=== PATIENT | female | born 1970 | race African-American/Black ===

== ENCOUNTER 2019-01-14 03:22 | Emergency (ER) | payer OTHER ==
--- NOTE | 2019-01-14 07:00 | ER Document Report ---
ED General - General Chief Complaint: Epigastric Pain Stated Complaint: PAIN THROAT,CHEST,RIGHT SIDE Time Seen by Provider: 01/14/19 06:59 Primary Care Provider: ARLEEN HARVEY MD [ACTIVE STAFF] - Follow up tomorrow (call for appointment ) Notes: Patient is a 48-year-old female that presents to the emergency department for chief complaint of painful swallowing. Patient reports she is been having painful swallowing over the past week or so, she says it comes and goes and is mainly only hurts when she swallows food. She has pain on the whole right side of her jaw, goes down the neck and into the chest as well. She has seen multiple physicians for this, was started on Nexium and Zantac, which has improved her symptoms to a degree, but there is still present so she wanted to come to the emergency department. She was told it might be from doxycycline, that she took several doses and then lie down shortly after and was told it might be esophagitis. She does have an appointment scheduled with a gastroent erologist next week, but was concerned because her symptoms still persisted. She denies any any fevers, chills, night sweats, worsening pain with exertion, denies shortness of breath, difficulty breathing, nausea, vomiting, diarrhea or diaphoresis. Past Medical History: Diabetes mellitus Past Surgical History: Denies surgical history Social History: Denies tobacco use, admits occasional alcohol use, denies illicit drug use. Family History: Reviewed and noncontributory for presenting illness Allergies: Reviewed, see documented allergy list. REVIEW OF SYSTEMS: Other than noted above, the 12 point review of systems was reviewed with the patient and were negative, all pertinent findings are included in the HPI. PHYSICAL EXAMINATION: Vital signs reviewed, nursing noted reviewed. GENERAL: Well-appearing, well-nourished and in no acute distress. HEAD: Atraumatic, normocephalic. EYES: Eyes appear normal, extraocular movements intact, sclera anicteric, conjunctiva are normal. ENT: nares patent, oropharynx clear without exudates. Moist mucous membranes. NECK: Normal range of motion, supple without lymphadenopathy LUNGS: Breath sounds clear to auscultation bilaterally and equal. No wheezes rales or rhonchi. HEART: Regular rate and rhythm without murmurs ABDOMEN: Soft, nontender, normoactive bowel sounds. No rebound, guarding, or rigidity. No masses appreciated. EXTREMITIES: Nontender, good range of motion, no pitting or edema. NEUROLOGICAL: No focal neurological deficits. Moves all extremities spontaneously Motor and sensory grossly intact on exam. PSYCH: Normal mood, normal affect. SKIN: Warm, Dry, normal turgor, no rashes or lesions noted on exposed skin TRAVEL OUTSIDE OF THE [place] IN LAST 30 DAYS: No Past Medical History - Social History Smoking Status: Never Smoker Chew tobacco use (# tins/day): No Frequency of alcohol use: Occasional Drug Abuse: None Family History: Reviewed & Not Pertinent Patient has suicidal ideation: No Patient has homicidal ideation: No Endocrine Medical History: Reports: Hx Diabetes Mellitus Type 2 Renal/ Medical History: Denies: Hx Peritoneal Dialysis GI Medical History: Reports: Hx Gastroesophageal Reflux Disease Physical Exam - Vital signs Vitals: Temp Pulse Resp BP Pulse Ox 98.4 F 78 18 124/78 100 01/14/19 03:40 01/14/19 03:40 01/14/19 03:40 01/14/19 03:40 01/14/19 03:40 Course - Re-evaluation Re-evalutation: Patient seen and examined vital signs reviewed. Laboratory data and/or imaging were ordered as appropriate for the patient's presenting symptoms and complaint, with consideration of any critical or life threatening conditions that may be associated with their obtained history and exam as noted above. Patient was treated with GI cocktail which she had some relief Results were reviewed when available and demonstrated unremarkable work-up, negative troponin, negative chest x-ray, CBC and CMP were unremarkable as well. The patient was re-evaluated and was stable, did get some relief from GI cocktail, I do believe the patient is having esophageal symptoms, and some pharyngeal symptoms, will prescribe her Tessalon Perles to help as an oral anesthetic that may help with her painful swallowing, I will refer to ENT, and advised to keep her appointment with gastroenterology on Sunday. Evaluation was most consistent with odynophagia Results were discussed with the patient at this point, after careful consideration I feel that that patient can be discharged from the emergency department, the patient was educated treatments and reasons to return to the emergency department based on their presumed diagnosis as noted above, they were advised to followup with a primary care physician in 2-3 days. Patient was agr eeable to plan of care. *Note is created using voice recognition software and may contain spelling, syntax or grammatical errors. Laboratory 01/14/19 01/14/19 01/14/19 07:40 07:40 07:40 WBC RBC Hgb Hct MCV MCH MCHC RDW Plt Count Seg Neutrophils % Lymphocytes % Monocytes % Eosinophils % Basophils % Absolute Neutrophils Absolute Lymphocytes Absolute Monocytes Absolute Eosinophils Absolute Basophils Sodium Cancelled Potassium Cancelled Chloride Cancelled Carbon Dioxide Cancelled Anion Gap Cancelled BUN Cancelled Creatinine Cancelled Est GFR ( Amer) Cancelled Est GFR (Non-Af Amer) Cancelled Glucose Cancelled Calcium Cancelled Total Bilirubin Cancelled Direct Bilirubin Cancelled Neonat Total Bilirubin Cancelled Neonat Direct Bilirubin Cancelled Neonat Indirect Bili Cancelled AST Cancelled ALT Cancelled Alkaline Phosphatase Cancelled Troponin I Cancelled Total Protein Cancelled Albumin Cancelled Lipase Cancelled 01/14/19 01/14/19 01/14/19 08:38 08:38 08:38 WBC 4.6 RBC 4.37 Hgb 12.5 Hct 37.4 MCV 86 MCH 28.6 MCHC 33.3 RDW 14.4 H Plt Count 231 Seg Neutrophils % 47.3 Lymphocytes % 43.0 Monocytes % 6.4 Eosinophils % 2.5 Basophils % 0.8 Absolute Neutrophils 2.2 Absolute Lymphocytes 2.0 Absolute Monocytes 0.3 Absolute Eosinophils 0.1 Absolute Basophils 0.0 Sodium 139.5 Potassium 4.6 Chloride 101 Carbon Dioxide 31 H Anion Gap 8 BUN 14 Creatinine 1.00 Est GFR ( Amer) > 60 Est GFR (Non-Af Amer) 59 L Glucose 104 Calcium 9.6 Total Bilirubin 0.3 Direct Bilirubin 0.2 Neonat Total Bilirubin Not Reportable Neonat Direct Bilirubin Not Reportable Neonat Indirect Bili Not Reportable AST 19 ALT 20 Alkaline Phosphatase 67 Troponin I < 0.012 Total Protein 7.5 Albumin 4.5 Lipase Chest X-Ray 01/14/19 07:00 IMPRESSION: No acute cardiopulmonary findings. - Vital Signs Vital signs: Temp Pulse Resp BP Pulse Ox 98.1 F 78 16 106/65 98 01/14/19 11:08 01/14/19 11:08 01/14/19 11:08 01/14/19 11:08 01/14/19 09:46 - Laboratory Result Diagrams: 01/14/19 08:38 01/14/19 08:38 Laboratory results interpreted by me: 06/18/19 06/18/19 08:38 08:38 RDW 14.4 H Carbon Dioxide 31 H Est GFR (Non-Af Amer) 59 L Discharge - Discharge Clinical Impression: Odynophagia Condition: Stable Disposition: HOME, SELF-CARE Instructions: Dysphagia (OM) Additional Instructions: Please keep your point with the gyroscopic instrument tester, and Tronic follow-up with yo ur nose and throat physician as well due to the painful swallowing, to have that evaluated. In the meantime continue taking the medications as previously prescribed, and try taking the Tessalon Perles to see if it will help relieve some of the pain as well. Prescriptions: Benzonatate [Tessalon Perle 100 mg Capsule] 100 mg PO Q8HP PRN #30 cap PRN Reason: sore throat Referrals: ARLEEN HARVEY MD [ACTIVE STAFF] - Follow up tomorrow (call for appointment )
--- NOTE | 2019-01-14 07:30 | RADIOLOGY REPORT (SQ) ---
EXAM DESCRIPTION: XR CHEST 1 VIEW COMPLETED DATE/TME: 01/14/2019 07:00 CLINICAL HISTORY: 47 years Female, chest pain COMPARISON: None. NUMBER OF VIEWS/TECHNIQUE: 1/AP FINDINGS: Adequate lung volume, clear parenchyma, normal cardiac silhouette, and intact bony thorax. IMPRESSION: No acute cardiopulmonary findings.
[2019-01-14] MEDS ORDERED: MAG HYDROX/AL HYDROX/SIMETH SUSP 30 ML UDCUP PO ONE (07:31)
[2019-01-14] MEDS ORDERED: LIDOCAINE 2% VISCOUS SOLN 20 ML UDCUP PO ONE (07:31)
[2019-01-14] MEDS ORDERED: METOCLOPRAMIDE HCL ORAL SOLN 10 MG/10 ML UDCUP PO ONE (07:31)
[2019-01-14] MEDS ORDERED: SUCRALFATE 1 GM TABLET PO ONE (07:31)
[2019-01-14 09:17] LABS: ABSOLUTE EOSINOPHILS # (AUTO) 0.1 10^3/uL (0.0-0.6); ABSOLUTE MONOCYTES (AUTO) 0.3 10^3/uL (0.1-1.4); ABSOLUTE NEUT (AUTO) 2.2 10^3/uL (1.7-8.2); BASOPHILS % (AUTO) 0.8 % (0-2); EOSINOPHILS % (AUTO) 2.5 % (0-6); HEMATOCRIT 37.4 % (36.0-47.0); HEMOGLOBIN 12.5 g/dL (12.0-15.5); MEAN CORPUSCULAR HEMOGLOBIN 28.6 pg (27.0-33.4); MEAN CORPUSCULAR HGB CONC 33.3 g/dL (32.0-36.0); MEAN CORPUSCULAR VOLUME 86 fl (80-97); MONOCYTES % (AUTO) 6.4 % (3-13); PLATELET COUNT 231 10^3/uL (150-450); RED BLOOD COUNT 4.37 10^6/uL (3.72-5.28); RED CELL DISTRIBUTION WIDTH 14.4 % (11.5-14.0); SEGMENTED NEUTROPHILS % (AUTO) 47.3 % (42-78); TOTAL CELLS COUNTED % (AUTO) 100 %; WHITE BLOOD COUNT 4.6 10^3/uL (4.0-10.5)
[2019-01-14 09:49] LABS: ALANINE AMINOTRANSFERASE 20 U/L (9-52); ALBUMIN 4.5 g/dL (3.5-5.0); ALKALINE PHOSPHATASE 67 U/L (38-126); ANION GAP 8 (5-19); ASPARTATE AMINO TRANSFERASE 19 U/L (14-36); BILIRUBIN,DIRECT 0.2 mg/dL (0.0-0.4); BILIRUBIN,TOTAL 0.3 mg/dL (0.2-1.3); BLOOD UREA NITROGEN 14 mg/dL (7-20); CALCIUM 9.6 mg/dL (8.4-10.2); CARBON DIOXIDE 31 mmol/L (22-30); CHLORIDE 101 mmol/L (98-107); GLUCOSE 104 mg/dL (75-110); POTASSIUM 4.6 mmol/L (3.6-5.0); SODIUM 139.5 mmol/L (137-145); TOTAL PROTEIN 7.5 g/dL (6.3-8.2)
--- NOTE | 2019-01-14 10:50 | EKG REPORT ---
SEVERITY:- BORDERLINE ECG - SINUS RHYTHM BORDERLINE T ABNORMALITIES, DIFFUSE LEADS : Confirmed by: Venus Seymour MD 14-Jan-2019 10:49:38
[2019-01-14 11:08] VITALS: BP 106/65
== END 2019-01-14 11:09 | disposition home or self-care (01) ==
LOC: ER 03:22 → EDBD 03:22 → ER 11:09
DX: R13.10 Dysphagia, unspecified (principal); R10.13 Epigastric pain; E11.9 Type 2 diabetes mellitus without complications
CPT/HCPCS: 93005; 99283; 36415; 85025; 80053; 84484; 71045; 93010; J3490

== ENCOUNTER 2019-05-17 04:18 | Emergency (ER) | payer OTHER ==
[2019-05-17 05:28] LABS: ABSOLUTE MONOCYTES (AUTO) 0.3 10^3/uL (0.1-1.4); ABSOLUTE NEUT (AUTO) 2.2 10^3/uL (1.7-8.2); BASOPHILS % (AUTO) 0.5 % (0-2); EOSINOPHILS % (AUTO) 0.9 % (0-6); HEMATOCRIT 38.4 % (36.0-47.0); HEMOGLOBIN 12.5 g/dL (12.0-15.5); LYMPHOCYTES % (AUTO) 43.3 % (13-45); MEAN CORPUSCULAR HEMOGLOBIN 27.5 pg (27.0-33.4); MEAN CORPUSCULAR HGB CONC 32.5 g/dL (32.0-36.0); MEAN CORPUSCULAR VOLUME 85 fl (80-97); MONOCYTES % (AUTO) 6.3 % (3-13); PLATELET COUNT 227 10^3/uL (150-450); RED BLOOD COUNT 4.53 10^6/uL (3.72-5.28); RED CELL DISTRIBUTION WIDTH 15.7 % (11.5-14.0); TOTAL CELLS COUNTED % (AUTO) 100 %; WHITE BLOOD COUNT 4.5 10^3/uL (4.0-10.5)
--- NOTE | 2019-05-17 05:41 | RADIOLOGY REPORT (SQ) ---
EXAM DESCRIPTION: XR CHEST 2 VIEWS COMPLETED DATE/TME: 05/17/2019 00:00 CLINICAL HISTORY: 48 years, Female, headache and chest pain COMPARISON: None. NUMBER OF VIEWS: Two TECHNIQUE: Two views of the chest LIMITATIONS: None. FINDINGS: The lungs are clear. The heart is normal in size. There is no pneumothorax or pleural effusion. There is no acute fracture. IMPRESSION: No acute cardiopulmonary abnormality copyright 2010 [employer]- All Rights Reserved
[2019-05-17 05:52] LABS: ALBUMIN 4.3 g/dL (3.5-5.0); ALKALINE PHOSPHATASE 66 U/L (38-126); ANION GAP 10 (5-19); ASPARTATE AMINO TRANSFERASE 22 U/L (14-36); BILIRUBIN,DIRECT 0.1 mg/dL (0.0-0.4); BILIRUBIN,TOTAL 0.3 mg/dL (0.2-1.3); BLOOD UREA NITROGEN 16 mg/dL (7-20); CALCIUM 8.8 mg/dL (8.4-10.2); CARBON DIOXIDE 27 mmol/L (22-30); CHLORIDE 102 mmol/L (98-107); CREATINE KINASE 102 U/L (30-135); GLUCOSE 112 mg/dL (75-110); POTASSIUM 4.3 mmol/L (3.6-5.0); TOTAL PROTEIN 7.6 g/dL (6.3-8.2)
[2019-05-17 06:12] LABS: CREATINE KINASE MB < 0.22 ng/mL (<4.55); TROPONIN I < 0.012 ng/mL
[2019-05-17] MEDS ORDERED: NORMAL SALINE 1000 ML 1,000 ML IV ONE (06:19)
[2019-05-17] MEDS ORDERED: ACETAMINOPHEN 325 MG TABLET PO ONE (06:19)
[2019-05-17] MEDS ORDERED: DIPHENHYDRAMINE HCL 50 MG/ML VIAL IV ONE (06:19)
[2019-05-17] MEDS ORDERED: PROCHLORPERAZINE EDISYLATE INJ 10 MG/2 ML VIAL IV ONE (06:20)
--- NOTE | 2019-05-17 06:39 | ER Document Report ---
Entered by JESS DE PAZ SCRIBE 05/17/19 0618 Acting as scribe for:MILO CALDERON MD ED Headache - General Chief Complaint: Headache >24 hrs old Stated Complaint: HEADACHE Time Seen by Provider: 05/17/19 06:08 Mode of Arrival: Medic Information source: Patient, Emergency Med Personnel, [facility] Records Notes: This 48-year-old female patient comes to the emergency room this morning by EMS for a frontal headache for the past 2 days. She reports she does not have a h istory of headaches. She reports a sudden onset of a frontal headache and pain in her eyes. She is unable to tell me when it started, other than 2 to 3 days ago, she cannot pinpoint what time a day it was when it started. She reports the headaches do come and go, this one is worse lasting several hours. Usually they will go away when she takes a pill and be gone for a few hours. There is photophobia associated with this headache. There is mild nausea without vomiting. She did take Motrin about 2 AM this morning without relief. She denies fever and cough. She does feel chilled. She additionally complained triage of feeling like her heart was beating slow and irregular. TRAVEL OUTSIDE OF THE [place] IN LAST 30 DAYS: No - Related Data Allergies/Adverse Reactions: No Known Allergies Allergy (Unverified 05/17/19 04:28) Home Medications: metformin. b12. folic acid. acyclovir. HCTZ. biotin Past Medical History - General Information source: Patient, [facility] Records - Social History Smoking Status: Never Smoker Cigarette use (# per day): No Chew tobacco use (# tins/day): No Smoking Education Provided: No Frequency of alcohol use: Occasional Drug Abuse: None Lives with: Spouse/Significant other Family History: Reviewed & Not Pertinent Patient has suicidal ideation: No Patient has homicidal ideation: No Endocrine Medical History: Reports: Hx Diabetes Mellitus Type 2 GI Medical History: Reports: Hx Gastroesophageal Reflux Disease Infectious Medical History: Reports: Other - 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 Surgical Hx: Negative Review of Systems - Review of Systems Constitutional: No symptoms reported EENT: See HPI, Eye pain Cardiovascular: See HPI - Complained of feeling like her heart was beating slow and irregular Respiratory: No symptoms reported Gastrointestinal: See HPI, Nausea Genitourinary: No symptoms reported Female Genitourinary: Post menopausal Musculoskeletal: No symptoms reported Skin: No symptoms reported Hematologic/Lymphatic: No symptoms reported Neurological/Psychological: See HPI, Headaches Physical Exam - Vital signs Vitals: Temp Pulse Resp BP Pulse Ox 99.1 F 35 L 18 116/56 L 98 05/17/19 04:24 05/17/19 04:24 05/17/19 04:24 05/17/19 04:24 05/17/19 04:24 - General General appearance: Alert In distress: Mild Notes: The patient does have photophobia and transferred to avoid lights. During the exam, I noted that her skin felt extremely warm, the room was quite warm, and she had on several layers of clothing. - HEENT Head: Normocephalic, Atraumatic. No: Tenderness - There is no tenderness to palpate or percuss the forehead region or to palpate the temporal region. Eyes: Normal, Other - Tenderness to palpate the eyeballs through the upper lids. The globes do not feel firm. Conjunctiva: Normal Extraocular movements intact: Yes Pupils: PERRL Neck: Other - Patient is able to place her chin on her chest, it causes pain at the base of the cervical spine posteriorly. When she does this palpating that area makes it much more tender and it is around the C7-T1 region. There is no nuchal rigidity. She does not complain of the frontal headache being made worse when she places her chin to her chest. - Respiratory Respiratory status: No respiratory distress Chest status: Nontender Breath sounds: Normal - Cardiovascular Rhythm: Regular Heart sounds: Normal auscultation Murmur: No - Abdominal Inspection: Obese Bowel sounds: Normal Tenderness: Nontender - Back Back: Normal - Extremities General upper extremity: Normal inspection General lower extremity: Normal inspection - Neurological Neuro grossly intact: Yes - Psychological Associated symptoms: Normal affect, Normal mood - Skin Skin Temperature: Hot Skin Moisture: Dry Skin Color: Normal Course - Re-evaluation Re-evalutation: 05/17/19 09:24 The patient received Tylenol, Compazine, and Benadryl with a liter of normal saline. She reports her headache is completely gone now and she feels much better. She is quite tired due to being up all night with her headache. She is able to move her head around and flex her neck without pain. CBC, Chem- 12 are unremarkable. - Vital Signs Vital signs: Temp Pulse Resp BP Pulse Ox 98.9 F 35 L 20 121/54 L 98 05/17/19 09:00 05/17/19 04:24 05/17/19 09:00 05/17/19 09:00 05/17/19 09:00 - Laboratory Result Diagrams: 05/17/19 04:30 05/17/19 04:30 Laboratory results interpreted by me: 05/17/19 05/17/19 05/17/19 04:30 04:30 04:30 RDW 15.7 H Est GFR (MDRD) Non-Af 59 L Glucose 112 H Ur Leukocyte Esterase SMALL H - Diagnostic Test Radiology reviewed: Image reviewed, Reports reviewed - Chest x-ray does not show acute cardiopulmonary disease. CT scan is unremarkable. - EKG Interpretation by Me EKG shows normal: Sinus rhythm, [place], Intervals, QRS Complexes. abnormal: ST-T Waves - Borderline anterior T abnormalities Rate: Normal - 94 Rhythm: NSR, PVC's When compared to previous EKG there are: No significant change Discharge - Discharge Clinical Impression: Tension type headache Qualifiers: Headache chronicity pattern: acute headache Intractability: not intractable Qualified Code(s): G44.209 - Tension-type headache, unspecified, not intractable Condition: Stable Disposition: HOME, SELF-CARE Additional Instructions: Tension Headache Your problem has been diagnosed as muscle tension headache. This very common type of headache occurs because of tightness in the muscles of the head and neck. The cause may be neck or jaw joint problems, but most commonly the cause is emotional stress. The headache may last hours or days. The treatment of uncomplicated tension headaches is rest and pain medication. Often, the newer antiinflammatory pain medications are prescribed, as these also decrease the irritability of the painful tissues. Muscle relaxers, cold packs, or warm packs are sometimes helpful. Anti-anxiety medication or narcotics are sometimes needed temporarily, but are best avoided in the long run. Your doctor has evaluated your headache problem, and finds no evidence of a serious health problem as a cause for the headache. If your headache becomes more severe, or if new symptoms develop (such as fever, stiff neck, vomiting, or decreasing alertness) you should be re-examined by the physician. Sleep in a cool quiet room today. Take Tylenol every 4 hours today and tomorrow. Take Motrin 800 mg every 8 hours. Take Benadryl 25 to 50 mg every 6 hours if your headache returns. Follow-up with your primary care provider if not improving. RETURN TO THE EMERGENCY ROOM IF ANY NEW OR WORSENING SYMPTOMS. Scribe Attestation: 05/17/19 06:33 I personally performed the services described in the documentation, reviewed and edited the documentation which was dictated to the scribe in my presence, and it accurately records my words and actions. I personally performed the services described in the documentation, reviewed and edited the documentation which was dictated to the scribe in my presence, and it accurately records my words and actions.
[2019-05-17 07:09] LABS: APPEARANCE,URINE TURBID; BILIRUBIN,URINE NEGATIVE (NEGATIVE); COLOR,URINE YELLOW; GLUCOSE, URINE NEGATIVE (NEGATIVE); KETONES,URINE NEGATIVE (NEGATIVE); LEUKOCYTE ESTERASE,URINE SMALL (NEGATIVE); NITRITE,URINE NEGATIVE (NEGATIVE); PROTEIN,URINE NEGATIVE (NEGATIVE); URINE SPECIFIC GRAVITY 1.024; UROBILINOGEN,URINE NEGATIVE mg/dL (<2.0)
--- NOTE | 2019-05-17 08:11 | RADIOLOGY REPORT (SQ) ---
EXAM DESCRIPTION: CT HEAD WITHOUT COMPLETED DATE/TIME: 05/17/2019 6:56 am REASON FOR STUDY: frontal headache x 3 days COMPARISON: None. TECHNIQUE: Axial images acquired through the brain without intravenous contrast. Images reviewed wi th bone, brain and subdural windows. Images stored on PACS. All CT scanners at this facility use dose modulation, iterative reconstruction, and/or weight based d osing when appropriate to reduce radiation dose to as low as reasonably achievable (ALARA). [facility]: Dose Right [facility]: CareDose [facility]: Dose Right [facility]: Teradose 4D [facility]: Smart [employer] RADIATION DOSE: CT Rad equipment meets quality standard of care and radiation dose reduction techniq ues were employed. CTDIvol: 53.2 mGy. DLP: 991 mGy-cm. mGy. LIMITATIONS: None. FINDINGS: VENTRICLES: Normal size and contour. CEREBRUM: No masses. No hemorrhage. No midline shift. No evidence for acute infarction. Normal gra y/white matter differentiation. No areas of low density in the white matter. CEREBELLUM: No masses. No hemorrhage. No alteration of density. No evidence for acute infarction. EXTRAAXIAL SPACES: No fluid collections. No masses. ORBITS AND GLOBE: No intra- or extraconal masses. Normal contour of globe without masses. CALVARIUM: No fracture. PARANASAL SINUSES: No fluid or mucosal thickening. SOFT TISSUES: No mass or hematoma. OTHER: No other significant finding. IMPRESSION: NORMAL BRAIN CT WITHOUT CONTRAST. EVIDENCE OF ACUTE STROKE: NO. COMMENT: Quality ID # [id number]: Final reports with documentation of one or more dose reduction techniques (e.g., Automated exposure control, adjustment of the mA and/or kV according to patient size, use of iterative reconstruction technique) TECHNICAL DOCUMENTATION: JOB ID: [id number] [employer]- All Rights Reserved Reading location - IP/workstation name: [facility]
[2019-05-17 09:38] VITALS: BP 121/54
--- NOTE | 2019-05-18 00:25 | EKG REPORT ---
SEVERITY:- ABNORMAL ECG - SINUS TACHYCARDIA MULTIPLE VENTRICULAR PREMATURE COMPLEXES BORDERLINE T ABNORMALITIES, ANTERIOR LEADS : Confirmed by: [employer] 18-May-2019 00:24:42
== END 2019-05-17 09:38 | disposition home or self-care (01) ==
LOC: ER 04:18
DX: G44.209 Tension-type headache, unspecified, not intractable (principal); H53.149 Visual discomfort, unspecified; R11.0 Nausea; E11.9 Type 2 diabetes mellitus without complications
CPT/HCPCS: 93005; 99284; 96374; 96375; 36415; 87040; 82553; 82550; 85025; 87077; 80053; 81001; 84484; 71046; 70450; 93010; J1200; J0780; J7030; 87150